=== PATIENT | female | born 1960 | race Caucasian/White ===

== ENCOUNTER 2019-05-22 22:09 | Inpatient (IN) ==
[2019-05-22] MEDS ORDERED: KETOROLAC 30 MG/1 ML VIAL IV STA (22:48)
[2019-05-22] MEDS ORDERED: ONDANSETRON 4 MG/2 ML VIAL IV STA (22:48)
[2019-05-22] MEDS ORDERED: SODIUM CHLORIDE 0.9% 500 ML IV STA (22:48)
[2019-05-22] MEDS ORDERED: ALUM/MAG/SIMETH/LIDO VISC 1:1 30 ML BOTTLE PO STA (22:48)
[2019-05-22] MEDS ORDERED: HYDROmorphone 2 MG/1 ML VIAL IV STA (22:48)
[2019-05-22] MEDS ORDERED: PANTOPRAZOLE 40 MG VIAL IV STA (22:48)
[2019-05-22 22:57] LABS: Basophils # 0.1 10*3/uL (0.0-0.2); Eosinophils # 0.1 10*3/uL (0.0-0.87); Eosinophils % 1.1 % (0.00-10.9); Hematocrit 39.1 VOL% (35.7-47.0); Hemoglobin 12.6 GM/DL (12.0-16.0); Immature Granulocytes % 0.5 %; Immature Granulocytes Absolute 0.06 #; Lymphocytes # 2.6 10*3/uL (1.4-4.0); Lymphocytes % 20.8 % (21.3-54.2); Mean Corpuscular HGB Conc 32.2 GM/DL (32-36); Mean Corpuscular Volume 85.6 FL (87-102); Mean Platelet Volume 10.7 FL (9.6-12.0); Neutrophils % 67.6 % (38.7-73.9); Platelet Count 251 T/CUMM (130-400); Red Blood Count 4.57 MC/CUMM (3.8-5.5); Red Cell Distribution Width 13.8 % (9.3-17.3); White Blood Count 12.6 T/CUMM (4-12)
[2019-05-22 23:15] LABS: Apearance,Urine Slightly Hazy (Clear); Bacteria,Urine Occasional /HPF (Few); Bilirubin,Urine Negative (Negative); Blood, Urine Small mg/dL (Negative); Glucose,Urine (UA) Negative (Negative); Ketones,Urine Negative (Negative); Mucus,Urine Occasional /LPF (Occasional); Nitrite,Urine Negative (Negative); Protein,Urine Negative; RBC,Urine 1 /HPF (0-4); Renal Epithelial Cells,Urine Occasional /HPF (<1); Squamous Epithelial Cell,Urine Occasional /HPF (0-10); Transitional Epi Cells,Urine Occasional /HPF (<1); Urine Color Yellow (Yellow); Urine Specific Gravity 1.016 (1.001-1.035); Urine Urobilinogen < 2.0 EU/DL (0.2-1.0); WBC,Urine 51 /HPF (0-6)
[2019-05-22 23:21] LABS: Albumin 3.8 G/DL (3.4-5.0); Bilirubin,Total 0.4 MG/DL (0.2-1.0); Calcium 9.1 MG/DL (8.5-10.1); Osmolality,Calculated 281.5 MOS/KG (273-304); Total Protein 7.7 G/DL (6.4-8.3)
[2019-05-22] MEDS ORDERED: MAGNESIUM SULF RIDER 2 GM in PREMIX 1 EACH IV STA (23:35)
[2019-05-22] MEDS ORDERED: LEVOFLOXACIN INJ 500 MG in PREMIX 1 EACH IV STA (23:35)
[2019-05-22] MEDS ORDERED: MAGNESIUM SULF RIDER 50 ML IV ONE (23:56)
[2019-05-23] MEDS ORDERED: PROMETHAZINE 25 MG/1 ML VIAL IM STA (00:15)
[2019-05-23] MEDS ORDERED: PROMETHAZINE 25 MG/1 ML VIAL ONE (00:15)
[2019-05-23] MEDS ORDERED: metroNIDAZOLE INJ 500 MG in PREMIX 1 EACH IV STA (00:34)
[2019-05-23] MEDS ORDERED: CIPROFLOXACIN INJ 400 MG in PREMIX 1 EACH IV STA (00:34)
[2019-05-23] MEDS ORDERED: ONDANSETRON 4 MG/2 ML VIAL IV PRN (01:21)
[2019-05-23] MEDS ORDERED: GLUCAGON 1 MG VIAL IM PRN (04:07)
[2019-05-23] MEDS ORDERED: HYDROmorphone 2 MG/1 ML VIAL IV PRN (04:07)
[2019-05-23] MEDS ORDERED: DEXTROSE 50% 25 GM/50 ML VIAL IV PRN (04:07)
[2019-05-23 06:49] LABS: Basophils # 0.1 10*3/uL (0.0-0.2); Eosinophils # 0.1 10*3/uL (0.0-0.87); Eosinophils % 1.1 % (0.00-10.9); Hematocrit 35.5 VOL% (35.7-47.0); Hemoglobin 11.1 GM/DL (12.0-16.0); Immature Granulocytes % 0.5 %; Immature Granulocytes Absolute 0.04 #; Lymphocytes # 2.1 10*3/uL (1.4-4.0); Lymphocytes % 25.4 % (21.3-54.2); Mean Corpuscular HGB Conc 31.3 GM/DL (32-36); Mean Platelet Volume 10.8 FL (9.6-12.0); Monocytes % 10.4 % (1.7-12.7); Neutrophils % 61.6 % (38.7-73.9); Platelet Count 226 T/CUMM (130-400); Red Blood Count 4.08 MC/CUMM (3.8-5.5); Red Cell Distribution Width 13.6 % (9.3-17.3); White Blood Count 8.1 T/CUMM (4-12)
[2019-05-23 07:24] LABS: Alanine Aminotransferase 18 U/L (13-56); Albumin 3.1 G/DL (3.4-5.0); Alkaline Phosphatase 72 U/L (45-117); Aspartate Amino Transferase 10 U/L (0-37); Bilirubin,Total < 0.39 MG/DL (0.2-1.0); Blood Urea Nitrogen 15 MG/DL (7-18); Calcium 8.6 MG/DL (8.5-10.1); Glucose 123 MG/DL (74-106); Osmolality,Calculated 280.4 MOS/KG (273-304); Total Protein 7.2 G/DL (6.4-8.3)
[2019-05-23] MEDS: INSULIN REGULAR 100 UNIT/ML SUBCUT SCH ×4 (08:33→21:35)
[2019-05-23] MEDS: PANTOPRAZOLE 40 MG TABLET PO SCH (09:24)
[2019-05-23] MEDS: metroNIDAZOLE INJ 500 MG in PREMIX 1 EACH IV SCH ×3 (11:10→23:32)
[2019-05-23] MEDS: SODIUM CHLORIDE 0.9% 1,000 ML IV SCH (11:10)
[2019-05-23] MEDS: ACETAMINOPHEN 325 MG TABLET PO PRN ×2 (11:19→21:32)
[2019-05-23] MEDS: CIPROFLOXACIN INJ 400 MG in PREMIX 1 EACH IV SCH (12:10)
[2019-05-24] MEDS: CIPROFLOXACIN INJ 400 MG in PREMIX 1 EACH IV SCH ×2 (01:11→12:09)
[2019-05-24] MEDS: SODIUM CHLORIDE 0.9% 1,000 ML IV SCH ×2 (01:16→21:04)
[2019-05-24 04:08] LABS: Basophils # 0.1 10*3/uL (0.0-0.2); Basophils % 1.6 % (0.0-0.8); Eosinophils # 0.2 10*3/uL (0.0-0.87); Eosinophils % 2.7 % (0.00-10.9); Hematocrit 34.9 VOL% (35.7-47.0); Hemoglobin 11.2 GM/DL (12.0-16.0); Immature Granulocytes % 0.3 %; Immature Granulocytes Absolute 0.02 #; Lymphocytes # 2.3 10*3/uL (1.4-4.0); Lymphocytes % 36.9 % (21.3-54.2); Mean Corpuscular HGB Conc 32.1 GM/DL (32-36); Mean Corpuscular Volume 86.6 FL (87-102); Mean Platelet Volume 10.5 FL (9.6-12.0); Neutrophils % 48.5 % (38.7-73.9); Platelet Count 227 T/CUMM (130-400); Red Blood Count 4.03 MC/CUMM (3.8-5.5); Red Cell Distribution Width 13.6 % (9.3-17.3); White Blood Count 6.3 T/CUMM (4-12)
[2019-05-24 04:32] LABS: Calcium 8.7 MG/DL (8.5-10.1); Osmolality,Calculated 283.1 MOS/KG (273-304)
[2019-05-24] MEDS: metroNIDAZOLE INJ 500 MG in PREMIX 1 EACH IV SCH ×4 (05:14→23:39)
[2019-05-24] MEDS: INSULIN REGULAR 100 UNIT/ML SUBCUT SCH ×4 (08:35→23:25)
[2019-05-24] MEDS: PANTOPRAZOLE 40 MG TABLET PO SCH (08:40)
[2019-05-25] MEDS: CIPROFLOXACIN INJ 400 MG in PREMIX 1 EACH IV SCH ×2 (00:42→16:09)
[2019-05-25] MEDS: metroNIDAZOLE INJ 500 MG in PREMIX 1 EACH IV SCH ×2 (04:26→10:17)
[2019-05-25] MEDS: SODIUM CHLORIDE 0.9% 1,000 ML IV SCH (04:29)
[2019-05-25] MEDS: INSULIN REGULAR 100 UNIT/ML SUBCUT SCH ×4 (08:44→21:13)
[2019-05-25] MEDS: PANTOPRAZOLE 40 MG TABLET PO SCH (08:46)
[2019-05-25 17:13] LABS: Basophils # 0.1 10*3/uL (0.0-0.2); Basophils % 1.6 % (0.0-0.8); Eosinophils # 0.2 10*3/uL (0.0-0.87); Eosinophils % 3.5 % (0.00-10.9); Hematocrit 36.9 VOL% (35.7-47.0); Hemoglobin 11.3 GM/DL (12.0-16.0); Immature Granulocytes % 0.3 %; Immature Granulocytes Absolute 0.02 #; Lymphocytes # 1.6 10*3/uL (1.4-4.0); Lymphocytes % 28.1 % (21.3-54.2); Mean Corpuscular HGB Conc 30.6 GM/DL (32-36); Mean Corpuscular Volume 86.4 FL (87-102); Mean Platelet Volume 10.6 FL (9.6-12.0); Monocytes % 7.9 % (1.7-12.7); Neutrophils % 58.6 % (38.7-73.9); Platelet Count 246 T/CUMM (130-400); Red Blood Count 4.27 MC/CUMM (3.8-5.5); Red Cell Distribution Width 13.5 % (9.3-17.3); White Blood Count 5.7 T/CUMM (4-12)
[2019-05-25] MEDS ORDERED: CIPROFLOXACIN 500 MG TABLET PO SCH (21:00)
[2019-05-25] MEDS: metroNIDAZOLE 500 MG TABLET PO SCH (21:14)
[2019-05-25] MEDS: CIPROFLOXACIN 500 MG TABLET PO SCH (21:14)
[2019-05-26 04:58] LABS: Basophils # 0.1 10*3/uL (0.0-0.2); Basophils % 1.8 % (0.0-0.8); Eosinophils # 0.3 10*3/uL (0.0-0.87); Eosinophils % 5.3 % (0.00-10.9); Hematocrit 34.9 VOL% (35.7-47.0); Immature Granulocytes % 0.3 %; Immature Granulocytes Absolute 0.02 #; Lymphocytes % 33.8 % (21.3-54.2); Mean Corpuscular HGB Conc 31.5 GM/DL (32-36); Mean Corpuscular Volume 86.4 FL (87-102); Mean Platelet Volume 11.3 FL (9.6-12.0); Monocytes % 10.1 % (1.7-12.7); Neutrophils % 48.7 % (38.7-73.9); Platelet Count 239 T/CUMM (130-400); Red Blood Count 4.04 MC/CUMM (3.8-5.5); Red Cell Distribution Width 13.5 % (9.3-17.3)
[2019-05-26] MEDS: INSULIN REGULAR 100 UNIT/ML SUBCUT SCH (09:42)
[2019-05-26] MEDS: CIPROFLOXACIN 500 MG TABLET PO SCH (09:49)
[2019-05-26] MEDS: PANTOPRAZOLE 40 MG TABLET PO SCH (09:49)
[2019-05-26] MEDS: metroNIDAZOLE 500 MG TABLET PO SCH (09:50)
[2019-05-26 10:49] VITALS: BP 137/95
== END 2019-05-26 11:08 | disposition home or self-care (01) | DRG 392 ==
LOC: N.ED 22:09 → N.EDINP 05-23 01:21 → N.5E 05-23 01:57
PROVIDERS: ADMIT Internal Medicine; ATTEND Internal Medicine

== ENCOUNTER 2019-09-08 11:12 | Inpatient (IN) ==
[2019-09-08] MEDS ORDERED: SODIUM CHLORIDE 0.9% 1,000 ML IV STA (16:22)
[2019-09-08] MEDS ORDERED: HYDROmorphone 2 MG/1 ML VIAL IV STA (16:22)
[2019-09-08] MEDS ORDERED: ONDANSETRON 4 MG/2 ML VIAL IV STA ×2 (16:22→18:32)
[2019-09-08] MEDS ORDERED: LEVOFLOXACIN INJ 750 MG in PREMIX 1 EACH IV STA (16:22)
[2019-09-08 17:03] LABS: Basophils # 0.1 10*3/uL (0.0-0.2); Basophils % 0.5 % (0.0-0.8); Eosinophils % 0.3 % (0.00-10.9); Hematocrit 37.7 VOL% (35.7-47.0); Hemoglobin 11.9 GM/DL (12.0-16.0); Immature Granulocytes % 0.5 %; Immature Granulocytes Absolute 0.06 #; Lymphocytes # 1.5 10*3/uL (1.4-4.0); Lymphocytes % 13.1 % (21.3-54.2); Mean Corpuscular HGB Conc 31.6 GM/DL (32-36); Mean Corpuscular Volume 86.5 FL (87-102); Mean Platelet Volume 10.2 FL (9.6-12.0); Monocytes % 7.9 % (1.7-12.7); Neutrophils % 77.7 % (38.7-73.9); Platelet Count 224 T/CUMM (130-400); Red Blood Count 4.36 MC/CUMM (3.8-5.5); Red Cell Distribution Width 13.2 % (9.3-17.3); White Blood Count 11.8 T/CUMM (4-12)
[2019-09-08 17:20] LABS: Osmolality,Calculated 278.5 MOS/KG (273-304)
[2019-09-08 17:46] LABS: Amorphous Crystals,Urine Occasional /HPF (Few); Apearance,Urine Slightly Hazy (Clear); Bacteria,Urine Few /HPF (Few); Bilirubin,Urine Negative (Negative); Blood, Urine Small mg/dL (Negative); Glucose,Urine (UA) Negative (Negative); Ketones,Urine Negative (Negative); Mucus,Urine Occasional /LPF (Occasional); Nitrite,Urine Negative (Negative); Protein,Urine Negative; RBC,Urine 1 /HPF (0-4); Squamous Epithelial Cell,Urine Occasional /HPF (0-10); Urine Color Yellow (Yellow); Urine Urobilinogen < 2.0 EU/DL (0.2-1.0); WBC,Urine 11 /HPF (0-6)
[2019-09-08] MEDS ORDERED: metroNIDAZOLE INJ 500 MG in PREMIX 1 EACH IV STA (17:55)
[2019-09-08] MEDS ORDERED: ZALEPLON 5 MG CAPSULE PO PRN (18:47)
[2019-09-08] MEDS ORDERED: MORPHINE 4 MG/1 ML VIAL IV PRN (18:47)
[2019-09-08] MEDS ORDERED: guaiFENesin/DM ER 600-30 MG TABLET PO PRN (18:47)
[2019-09-08] MEDS ORDERED: ONDANSETRON 4 MG/2 ML VIAL IV PRN (18:47)
[2019-09-08] MEDS ORDERED: hydrALAZINE 20 MG/1 ML VIAL IV PRN (18:51)
[2019-09-08] MEDS ORDERED: GLUCAGON 1 MG VIAL IM PRN (18:52)
[2019-09-08] MEDS ORDERED: DEXTROSE 10% 250 ML BAG IV PRN (18:52)
[2019-09-08] MEDS: MELATONIN 3 MG TABLET PO SCH (21:37)
[2019-09-08] MEDS: ENOXAPARIN 40 MG/0.4 ML SYRINGE SUBCUT SCH (21:37)
[2019-09-08] MEDS: SODIUM CHLORIDE 0.9% 1,000 ML IV SCH (21:37)
[2019-09-08] MEDS: ACETAMINOPHEN 325 MG TABLET PO PRN (21:54)
[2019-09-08] MEDS: INSULIN LISPRO 100 UNIT/ML SUBCUT SCH (21:55)
[2019-09-09] MEDS: metroNIDAZOLE INJ 500 MG in PREMIX 1 EACH IV SCH ×3 (02:50→18:07)
[2019-09-09] MEDS: ACETAMINOPHEN 325 MG TABLET PO PRN ×2 (06:47→13:20)
[2019-09-09 07:09] LABS: Basophils # 0.1 10*3/uL (0.0-0.2); Basophils % 0.6 % (0.0-0.8); Eosinophils # 0.1 10*3/uL (0.0-0.87); Eosinophils % 1.4 % (0.00-10.9); Hematocrit 34.1 VOL% (35.7-47.0); Hemoglobin 10.7 GM/DL (12.0-16.0); Immature Granulocytes % 0.4 %; Immature Granulocytes Absolute 0.03 #; Lymphocytes # 1.4 10*3/uL (1.4-4.0); Lymphocytes % 17.1 % (21.3-54.2); Mean Corpuscular HGB Conc 31.4 GM/DL (32-36); Mean Corpuscular Volume 86.1 FL (87-102); Mean Platelet Volume 11.1 FL (9.6-12.0); Neutrophils % 69.5 % (38.7-73.9); Platelet Count 205 T/CUMM (130-400); Red Blood Count 3.96 MC/CUMM (3.8-5.5); Red Cell Distribution Width 13.2 % (9.3-17.3); White Blood Count 8.4 T/CUMM (4-12)
[2019-09-09 07:40] LABS: Albumin 2.9 G/DL (3.4-5.0); Bilirubin,Total 0.4 MG/DL (0.2-1.0); Calcium 8.4 MG/DL (8.5-10.1); Osmolality,Calculated 281.3 MOS/KG (273-304); Total Protein 6.7 G/DL (6.4-8.3)
[2019-09-09] MEDS: INSULIN LISPRO 100 UNIT/ML SUBCUT SCH ×4 (07:42→21:36)
[2019-09-09 07:48] LABS: Folate 8.9 NG/ML (5.4-24.0); Vitamin B12 644 PG/ML (211-911)
[2019-09-09 08:15] LABS: Sedimentation Rate-Westergren 65 MM/HR (0-30)
[2019-09-09] MEDS: SODIUM CHLORIDE 0.9% 1,000 ML IV SCH ×2 (09:03→22:52)
[2019-09-09] MEDS: PANTOPRAZOLE 40 MG TABLET PO SCH (09:03)
[2019-09-09] MEDS: ROSUVASTATIN 20 MG TABLET PO SCH (09:03)
[2019-09-09] MEDS ORDERED: ESTROGENS (CONJ) VAG CREAM 30 GM TUBE VAG SCH (09:30)
[2019-09-09] MEDS: sitaGLIPtin 25 MG TABLET PO SCH (11:12)
[2019-09-09] MEDS: LEVOFLOXACIN INJ 750 MG in PREMIX 1 EACH IV SCH (15:20)
[2019-09-09] MEDS: MELATONIN 3 MG TABLET PO SCH (21:36)
[2019-09-09] MEDS: ENOXAPARIN 40 MG/0.4 ML SYRINGE SUBCUT SCH (21:36)
[2019-09-09] MEDS: DOCUSATE SODIUM 100 MG CAPSULE PO PRN (21:36)
[2019-09-10] MEDS: metroNIDAZOLE INJ 500 MG in PREMIX 1 EACH IV SCH ×3 (02:48→20:46)
[2019-09-10 05:43] LABS: Basophils # 0.1 10*3/uL (0.0-0.2); Basophils % 1.3 % (0.0-0.8); Eosinophils # 0.1 10*3/uL (0.0-0.87); Eosinophils % 1.8 % (0.00-10.9); Immature Granulocytes % 0.3 %; Immature Granulocytes Absolute 0.02 #; Lymphocytes # 2.1 10*3/uL (1.4-4.0); Mean Corpuscular HGB Conc 31.3 GM/DL (32-36); Mean Corpuscular Volume 86.7 FL (87-102); Mean Platelet Volume 11.4 FL (9.6-12.0); Monocytes % 9.3 % (1.7-12.7); Neutrophils % 53.3 % (38.7-73.9); Platelet Count 202 T/CUMM (130-400); Red Blood Count 3.69 MC/CUMM (3.8-5.5); Red Cell Distribution Width 13.2 % (9.3-17.3); White Blood Count 6.2 T/CUMM (4-12)
[2019-09-10 06:06] LABS: Calcium 8.3 MG/DL (8.5-10.1); Osmolality,Calculated 286.8 MOS/KG (273-304)
[2019-09-10] MEDS: PANTOPRAZOLE 40 MG TABLET PO SCH (08:48)
[2019-09-10] MEDS: ROSUVASTATIN 20 MG TABLET PO SCH (08:48)
[2019-09-10] MEDS ORDERED: MAGNESIUM SULF RIDER 2 GM in PREMIX 1 EACH IV ONE (09:51)
[2019-09-10] MEDS: SODIUM CHLORIDE 0.9% 1,000 ML IV SCH (09:57)
[2019-09-10] MEDS ORDERED: SITAGLIPTIN METFORMIN PO SCH (10:00)
[2019-09-10 10:12] LABS: Hemoglobin A1 (Alkaline) 97.8 % (96.5-98.5); Hemoglobin A2 (Alkaline) 2.2 % (1.5-3.5)
[2019-09-10] MEDS: INSULIN LISPRO 100 UNIT/ML SUBCUT SCH ×4 (10:28→20:46)
[2019-09-10] MEDS: sitaGLIPtin 25 MG TABLET PO SCH (10:53)
[2019-09-10] MEDS: ACETAMINOPHEN 325 MG TABLET PO PRN (11:06)
[2019-09-10] MEDS: LEVOFLOXACIN INJ 750 MG in PREMIX 1 EACH IV SCH (17:23)
[2019-09-10] MEDS: ENOXAPARIN 40 MG/0.4 ML SYRINGE SUBCUT SCH (20:49)
[2019-09-10] MEDS: DOCUSATE SODIUM 100 MG CAPSULE PO PRN (20:50)
[2019-09-10] MEDS: MELATONIN 3 MG TABLET PO SCH (20:50)
[2019-09-11] MEDS: metroNIDAZOLE INJ 500 MG in PREMIX 1 EACH IV SCH ×2 (04:18→11:28)
[2019-09-11] MEDS: ACETAMINOPHEN 325 MG TABLET PO PRN (04:21)
[2019-09-11 06:41] LABS: Calcium 8.8 MG/DL (8.5-10.1); Osmolality,Calculated 278.7 MOS/KG (273-304)
[2019-09-11] MEDS: INSULIN LISPRO 100 UNIT/ML SUBCUT SCH ×2 (08:16→15:11)
[2019-09-11] MEDS: sitaGLIPtin 25 MG TABLET PO SCH (09:12)
[2019-09-11] MEDS: ROSUVASTATIN 20 MG TABLET PO SCH (09:12)
[2019-09-11] MEDS: PANTOPRAZOLE 40 MG TABLET PO SCH (09:12)
[2019-09-11 11:17] VITALS: BP 153/78
== END 2019-09-11 14:42 | disposition home or self-care (01) | DRG 392 ==
LOC: N.ED 11:12 → N.EDINP 19:30 → N.3E 19:39
PROVIDERS: ADMIT Family Medicine; ATTEND Family Medicine

== ENCOUNTER 2019-09-25 06:54 | Inpatient (IN) ==
[2019-09-24 09:12] LABS: Basophils # 0.1 10*3/uL (0.0-0.2); Basophils % 1.5 % (0.0-0.8); Eosinophils # 0.1 10*3/uL (0.0-0.87); Eosinophils % 1.3 % (0.00-10.9); Hematocrit 40.5 VOL% (35.7-47.0); Hemoglobin 12.5 GM/DL (12.0-16.0); Immature Granulocytes % 0.3 %; Immature Granulocytes Absolute 0.02 #; Lymphocytes # 1.8 10*3/uL (1.4-4.0); Lymphocytes % 22.6 % (21.3-54.2); Mean Corpuscular HGB Conc 30.9 GM/DL (32-36); Mean Corpuscular Volume 86.5 FL (87-102); Mean Platelet Volume 10.2 FL (9.6-12.0); Monocytes % 5.9 % (1.7-12.7); Neutrophils % 68.4 % (38.7-73.9); Platelet Count 261 T/CUMM (130-400); Red Blood Count 4.68 MC/CUMM (3.8-5.5); Red Cell Distribution Width 13.4 % (9.3-17.3); White Blood Count 7.8 T/CUMM (4-12)
[2019-09-24 09:37] LABS: Calcium 8.9 MG/DL (8.5-10.1); Osmolality,Calculated 282.3 MOS/KG (273-304)
[~2019-09-25 06:54] MED LIST: ACETAMINOPHEN 500 MG TABLET PO ONE; BUPIVACAINE MPF 0.25% 30 ML VIAL ONE; DIAZEPAM 5 MG TABLET PO ONE; INDOCYANINE GREEN 25 MG VIAL IV ONE; LACTATED RINGERS 1,000 ML IV SCH; LIDOCAINE 1%/EPI INJ 20 ML VIAL ONE; RANITIDINE 150 MG TABLET PO ONE; SCOPOLAMINE 1.5 MG PATCH TRANSDERM ONE; TISSUE ADHESIVE 1 EACH APPLICATOR TOP ONE
[2019-09-25] MEDS ORDERED: ALVIMOPAN 12 MG CAPSULE PO ONE (07:00)
[2019-09-25] MEDS ORDERED: ERTAPENEM 1,000 MG in SODIUM CHLORIDE 0.9% 100 ML IV ONE (07:00)
[2019-09-25] MEDS ORDERED: DIAZEPAM 5 MG TABLET ONE (07:26)
[2019-09-25] MEDS ORDERED: SCOPOLAMINE 1.5 MG PATCH TRANSDERM ONE (07:27)
[2019-09-25] MEDS ORDERED: ERTAPENEM 1,000 MG VIAL ONE (07:27)
[2019-09-25] MEDS ORDERED: ACETAMINOPHEN 500 MG TABLET ONE (07:27)
[2019-09-25] MEDS ORDERED: ALVIMOPAN 12 MG CAPSULE ONE (07:27)
[2019-09-25] MEDS ORDERED: BUPIVACAINE MPF 0.5% /EPI 30 ML VIAL ONE ×2 (08:09→12:09)
[2019-09-25] MEDS ORDERED: LIDOCAINE 2% 5 ML VIAL ONE ×2 (08:09→11:39)
[2019-09-25] MEDS ORDERED: DEXAMETHASONE 4 MG/1 ML VIAL ONE ×2 (08:09→11:39)
[2019-09-25] MEDS: HYDROmorphone 2 MG/1 ML VIAL IV PRN ×3 (11:30→12:00)
[2019-09-25] MEDS ORDERED: ONDANSETRON 4 MG/2 ML VIAL IV PRN ×2 (11:35→13:20)
[2019-09-25] MEDS ORDERED: fentaNYL 100 MCG/2 ML VIAL ONE (11:39)
[2019-09-25] MEDS ORDERED: PHENYLEPHRINE DRIP 20 MG/250 ML PREMIX IV ONE (11:39)
[2019-09-25] MEDS ORDERED: MIDAZOLAM 2 MG/2 ML VIAL ONE (11:39)
[2019-09-25] MEDS ORDERED: DESFLURANE 1 UNIT/15 MINUTE INH ONE (11:39)
[2019-09-25] MEDS ORDERED: ONDANSETRON 4 MG/2 ML VIAL ONE (11:39)
[2019-09-25] MEDS ORDERED: propofoL 200 MG/20 ML VIAL IV ONE (11:39)
[2019-09-25] MEDS ORDERED: ROCURONIUM 100 MG/10 ML VIAL IV ONE (11:40)
[2019-09-25] MEDS ORDERED: LACTATED RINGERS 1,000 ML IV ONE (11:40)
[2019-09-25] MEDS ORDERED: GLYCOPYRROLATE 0.4 MG/2 ML VIAL ONE (11:40)
[2019-09-25] MEDS ORDERED: NEOSTIGMINE 10 MG/10 ML VIAL ONE (11:40)
[2019-09-25] MEDS ORDERED: PHENYLEPHRINE 1 MG/10 ML SYRINGE IV ONE (11:40)
[2019-09-25] MEDS ORDERED: HYDROmorphone 2 MG/1 ML VIAL IV PRN (13:20)
[2019-09-25 14:00] LABS: Basophils # 0.1 10*3/uL (0.0-0.2); Basophils % 0.5 % (0.0-0.8); Eosinophils % 0.1 % (0.00-10.9); Hematocrit 41.3 VOL% (35.7-47.0); Immature Granulocytes % 0.3 %; Immature Granulocytes Absolute 0.05 #; Lymphocytes % 6.9 % (21.3-54.2); Mean Corpuscular HGB Conc 31.5 GM/DL (32-36); Mean Corpuscular Volume 86.2 FL (87-102); Mean Platelet Volume 11.4 FL (9.6-12.0); Neutrophils % 90.2 % (38.7-73.9); Red Blood Count 4.79 MC/CUMM (3.8-5.5); Red Cell Distribution Width 13.4 % (9.3-17.3)
[2019-09-25 14:01] LABS: Platelet Count 206 T/CUMM (130-400); White Blood Count 14.9 T/CUMM (4-12)
[2019-09-25] MEDS: LACTATED RINGERS 1,000 ML IV SCH (14:04)
[2019-09-25] MEDS: KETOROLAC 30 MG/1 ML VIAL IV SCH ×2 (15:41→21:28)
[2019-09-25] MEDS: ALVIMOPAN 12 MG CAPSULE PO SCH (21:28)
[2019-09-25] MEDS: MELATONIN 3 MG TABLET PO SCH (21:28)
[2019-09-26] MEDS: LACTATED RINGERS 1,000 ML IV SCH (01:32)
[2019-09-26] MEDS: KETOROLAC 30 MG/1 ML VIAL IV SCH ×4 (03:00→21:21)
[2019-09-26 07:25] LABS: Calcium 8.4 MG/DL (8.5-10.1); Osmolality,Calculated 266.4 MOS/KG (273-304)
[2019-09-26 08:16] LABS: Basophils # 0.1 10*3/uL (0.0-0.2); Basophils % 0.5 % (0.0-0.8); Eosinophils # 0.2 10*3/uL (0.0-0.87); Eosinophils % 2.4 % (0.00-10.9); Hematocrit 32.4 VOL% (35.7-47.0); Immature Granulocytes % 0.3 %; Immature Granulocytes Absolute 0.03 #; Lymphocytes # 1.6 10*3/uL (1.4-4.0); Mean Corpuscular HGB Conc 32.1 GM/DL (32-36); Mean Corpuscular Volume 84.6 FL (87-102); Monocytes % 9.1 % (1.7-12.7); Neutrophils % 70.7 % (38.7-73.9); Platelet Count 206 T/CUMM (130-400); Red Blood Count 3.83 MC/CUMM (3.8-5.5); Red Cell Distribution Width 13.5 % (9.3-17.3)
[2019-09-26 08:20] LABS: Hemoglobin 10.4 GM/DL (12.0-16.0); White Blood Count 9.1 T/CUMM (4-12)
[2019-09-26] MEDS ORDERED: ENOXAPARIN 40 MG/0.4 ML SYRINGE SUBCUT SCH (09:00)
[2019-09-26] MEDS ORDERED: [UNRECOGNIZED DRUG - OTHER] PO SCH (09:00)
[2019-09-26] MEDS ORDERED: NON-FORMULARY MEDICATION (Garlic 500 MG) PO SCH (09:00)
[2019-09-26] MEDS: ALVIMOPAN 12 MG CAPSULE PO SCH (09:05)
[2019-09-26] MEDS: ROSUVASTATIN 20 MG TABLET PO SCH (09:15)
[2019-09-26] MEDS ORDERED: ESTROGENS (CONJ) VAG CREAM 30 GM TUBE VAG SCH (11:21)
[2019-09-26 14:22] LABS: Hematocrit 30.7 VOL% (35.7-47.0); Hemoglobin 9.7 GM/DL (12.0-16.0)
[2019-09-26] MEDS: MELATONIN 3 MG TABLET PO SCH (21:21)
[2019-09-27] MEDS: KETOROLAC 30 MG/1 ML VIAL IV SCH ×2 (03:19→08:43)
[2019-09-27 05:04] LABS: Basophils % 0.4 % (0.0-0.8); Eosinophils # 0.4 10*3/uL (0.0-0.87); Eosinophils % 4.8 % (0.00-10.9); Hematocrit 31.2 VOL% (35.7-47.0); Hemoglobin 9.7 GM/DL (12.0-16.0); Immature Granulocytes % 0.3 %; Immature Granulocytes Absolute 0.02 #; Lymphocytes # 1.3 10*3/uL (1.4-4.0); Lymphocytes % 17.4 % (21.3-54.2); Mean Corpuscular HGB Conc 31.1 GM/DL (32-36); Mean Corpuscular Volume 85.2 FL (87-102); Mean Platelet Volume 10.8 FL (9.6-12.0); Monocytes % 9.7 % (1.7-12.7); Neutrophils % 67.4 % (38.7-73.9); Platelet Count 197 T/CUMM (130-400); Red Blood Count 3.66 MC/CUMM (3.8-5.5); Red Cell Distribution Width 13.2 % (9.3-17.3); White Blood Count 7.5 T/CUMM (4-12)
[2019-09-27 07:56] VITALS: BP 139/67
[2019-09-27] MEDS: ROSUVASTATIN 20 MG TABLET PO SCH (08:43)
== END 2019-09-27 10:35 | disposition home or self-care (01) | DRG 331 ==
LOC: N.OR 06:54 → N.SDSINP 06:54 → EDSTATUS 12:15 → EDSDCBED 13:05 → N.3E 13:05 → N.SDSINP 13:05 → N.OR 09-27 10:35 → N.3E 10-01 22:54
PROVIDERS: ADMIT Surgery; ATTEND Surgery